=== PATIENT | female | born 1985 | race Caucasian/White ===

== ENCOUNTER 2019-01-05 08:39 | Emergency (ER) | payer OTHER ==
[~2019-01-05] VITALS: Ht 165.1 cm; Wt 48.0 kg
[2019-01-05 08:57] VITALS: BP 117/63; PULSE 89; RESP 18; Ht 165.1 cm; Wt 48.0 kg
[2019-01-05] MEDS ORDERED: LIDOCAINE 1% (MPF) 5 ML VIAL INJ ONE (10:00)
--- NOTE | 2019-01-05 11:09 | ERD ---
ER Documentation Chief Complaint Chief Complaint left 5th finger laceration with tongs HPI 33 year old female presenting with 3 cm U shaped laceration to anterior left 5th digit. Patient was washing dishes at home when she cut her finger on a pair of cooking tongs. Patient stated this happen about 1 hour ago. Patient last tetanus shot was 2 months ago. Patient denies surgical history and states her only past medical history is anxiety which she takes medication for, but does not know the name. ROS All systems reviewed and are negative except as per history of present illness. Allergies Allergies: Coded Allergies: No Known Allergy (Unverified , 01/05/19) PMhx/Soc Medical and Surgical Hx: pt denies Medical Hx, pt denies Surgical Hx Hx Alcohol Use: No Hx Substance Use: No Hx Tobacco Use: No Physical Exam Vitals Vital Signs Date Temp Pulse Resp B/P (MAP) Pulse Ox O2 O2 Flow FiO2 Time Delivery Rate 01/05/19 97.8 89 18 117/63 98 08:57 (81) Physical Exam Const: No acute distress Resp: Clear to auscultation bilaterally Cardio: Regular rate and rhythm, no murmurs Abd: Soft, non tender, non distended. Normal bowel sounds Skin: 3 cm U shaped laceration on Left 5th digit. Back: No midline or flank tenderness Ext: Patient has intact neurovascular exam in left hand. No signs of tendon or muscle exposure. Results 24 hrs Current Medications Medications Dose Sig/Gagandeep Start Time Status Last (Trade) Ordered Route PRN Stop Time Admin Dose Reason Admin Lidocaine 5 ml ONCE ONCE 01/05/19 DC (Xylocaine INJ 10:00 1% (Mpf)) 01/05/19 10:22 Procedures/MDM ER Course: Patient 33 year old female presenting with laceration to left 5th digit. Patient cut her hand on a pair on tongs while doing dishes at her home. The laceration is superficial with no tendon or muscle involvement. Patient has good pulse motor and sensation in the left hand. 1% lidocaine was used to provide anesthetic and the wound was irrigated with normal saline and Betadine. The laceration was repaired with 5-0 non absorbable suture. 3 sutures were placed and then secured with steri strips. Patient is up to date on her tetanus vaccination. Patient was discharged with instructions to follow-up in 5 to 7 days to have the sutures removed. Patient was advised to keep the area clean and to avoid any activities that may break the sutures open. Patient was advised if the sutures to break open to return to the ER. Patient's left fifth digit was immobilized with a finger splint in the area of sutures were secured with sterile strips. A neurovascular check was done pre-a nd post splint patient had no signs of impairment. MDM Patient presented with 3 cm laceration to the fifth digit. Patient cut her finger while doing dishes on a pair of metal tongs. Patient's laceration was superficial with no muscle or tendon involvement. Patient's neurovascular check was unremarkable. Due to the mechanism of injury and physical exam I have low suspicion for fracture, tendon or muscle involvement, neurovascular injury, foreign body, or infection. No imaging was done because the laceration was superficial and cut on a brand- new pair of tongs that she was washing in the sink with dish soap. The wound was irrigated and cleaned with saline and Betadine. No signs of streaking or erythematous in the extremity. Patient had good pulse motor sensation and neurovascular examination was unremarkable prior to suture placement and post splint application. Departure Diagnosis: Primary Impression: Hand laceration Encounter type: initial encounter Foreign body presence: without foreign body Laterality: left Qualified Codes: S61.412A - Laceration without foreign body of left hand, initial encounter Condition: Stable Patient Instructions: Laceration, Hand [facility] Additional Instructions: Patient was advised to have sutures removed 5-7 days from today. Patient was advised she should follow up with her primary care DIANE GARCIA PA-C January 05, 2019 11:09
== END 2019-01-05 11:34 | disposition home or self-care (01) ==
LOC: FTE 08:39
DX: S61.217A Laceration without foreign body of left little finger without damage to nail, initial encounter (principal); W26.8XXA Contact with other sharp object(s), not elsewhere classified, initial encounter; Y92.9 Unspecified place or not applicable
CPT/HCPCS: 12002; Z7502; Z7610

== ENCOUNTER 2019-01-07 10:39 | Emergency (ER) | payer OTHER ==
[~2019-01-07] VITALS: Wt 48.2 kg
[2019-01-07 10:41] VITALS: BP 104/63; PULSE 86; RESP 18
--- NOTE | 2019-01-07 12:42 | ERD ---
ER Documentation Chief Complaint Chief Complaint for wound check on lt pinky finger HPI Patient is a 33-year-old female with no medical problems who presents for a wound check. The patient had 3 sutures placed the left fifth finger 2 days ago. She came back for a 48-hour wound check. She has no fevers and no pus from the wound. ROS All systems reviewed and are negative except as per history of present illness. Allergies Allergies: Coded Allergies: No Known Allergy (Unverified , 01/05/19) PMhx/Soc Medical and Surgical Hx: pt denies Medical Hx, pt denies Surgical Hx Hx Alcohol Use: No Hx Substance Use: No Hx Tobacco Use: No Smoking Status: Never smoker FmHx Family History: No diabetes Physical Exam Vitals Vital Signs Date Temp Pulse Resp B/P (MAP) Pulse Ox O2 O2 Flow FiO2 Time Delivery Rate 01/07/19 98.0 86 18 104/63 99 10:41 (77) Physical Exam Const: No acute distress Head: Atraumatic Eyes: Normal Conjunctiva ENT: Normal External Ears, Nose and Mouth. Neck: Full range of motion. No meningismus. Resp: Clear to auscultation bilaterally Cardio: Regular rate and rhythm, no murmurs Abd: Soft, non tender, non distended. Normal bowel sounds Skin: Incision to the fifth finger is clean, dry, and intact. Back: No midline or flank tenderness Ext: No cyanosis, or edema Neur: Awake and alert Psych: Normal Mood and Affect Procedures/MDM Wound shows no evidence of infection, foreign body, neurologic injury, vascular injury, open joint or tendon laceration. Patient appropriate for outpatient follow up. Departure Diagnosis: Primary Impression: Visit for wound check Condition: Fair Patient Instructions: Wound Check, Lac F/U (No Infection) Referrals: Your doctor Additional Instructions: Suture removal 5-7 days. MARK ZHOU MD January 07, 2019 12:42
== END 2019-01-07 12:00 | disposition home or self-care (01) ==
LOC: FTE 10:39
DX: Z48.01 Encounter for change or removal of surgical wound dressing (principal)
CPT/HCPCS: 99281